=== PATIENT | male | born 1965 | race Caucasian/White ===

== ENCOUNTER 2023-12-10 05:56 | Inpatient (IN) | payer OTHER, SELFPAY ==
[2023-12-10] VITALS (10 sets, daily range): BP systolic 121–138; BP diastolic 80–106; BMI 30.5; BMI 29.8
[2023-12-10 02:27] LABS: % Basophils 0.5 % (0-2); % Eosinophils 0.3 % (0-6); % Immature Granulocytes 0.4 % (0-0.5); % Lymphocytes 43.4 % (20.5-51.1); % Monocytes 5.5 % (1.7-9.3); % Neutrophils 49.9 % (42.2-75.2); Absolute Basophils 0.1 10^3/uL (0-0.2); Absolute Immature Granulocytes 0.1 10^3/uL (0-0.05); Absolute Lymphocytes 5.5 10^3/uL (1.2-3.4); Absolute Monocytes 0.7 10^3/uL (0.1-0.6); Absolute Neutrophils 6.4 10^3/uL (1.4-6.5); Mean Corp Hgb Conc. 34.2 g/dL (33.0-37.0); Mean Corpuscular Hgb 31.8 pg (27.0-31.0); Mean Platelet Volume 9.5 fL (7.4-10.4); Nucleated Red Blood Cells % 0 % (-); Platelet Count 256 10^3/uL (130-400); Red Blood Cell Count 3.87 10^6/uL (4.70-6.10); White Blood Cell Count 12.7 10^3/uL (4.8-10.8)
[2023-12-10 02:32] LABS: Hemoglobin 12.3 g/dL (13.0-18.0)
[2023-12-10 02:44] LABS: ALT (SGPT) 67 U/L (0-50); AST (SGOT) 102 U/L (17-59); Albumin 4.2 g/dl (3.5-5.0); Blood Urea Nitrogen 27 mg/dl (9-20); Carbon Dioxide 27 mmol/L (22-30); Glucose 125 mg/dl (70-99); Potassium 3.6 mmol/L (3.5-5.1); Total Bilirubin 1.5 mg/dl (0.2-1.3); Total Protein 6.8 g/dl (6.3-8.2); eGFR > 60.00
[2023-12-10 02:53] LABS: Alkaline Phosphatase 97 U/L (38-126); Calcium 10.1 mg/dl (8.4-10.2); Chloride 102 mmol/L (98-107); Sodium 139 mmol/L (135-145)
[2023-12-10 03:05] LABS: NT-proBNP 5520 pg/ml; Troponin I 0.068 ng/ml
--- NOTE | 2023-12-10 03:08 | ED.GENMED ---
History of Present Illness
General
Chief Complaint: Breathing Problem
Source: patient
Exam Limitations: none
Time Seen by Provider: 12/10/23 03:04
Travel History
Have you had any contact with someone who has COVID-19?: No
Do you have any symptoms of coronavirus? Fever > 100 degrees, chills, cough, shortness of breath, sore throat, loss of taste or smell, muscle aches, or headache?: No
History of Present Illness
History of Present Illness:
This is a 58 year old male that comes in with c/o SOB and his feet and ankles swelling. States that this started a couple days ago and has gotten worse. States that he has upper chest pain with the SOB, abd pain, nausea, vomiting, slight headache
and dizziness. Denies any fever, chills, diarrhea, urinary burning.
Past History
Past History
ED Past Medical History: COPD, Psychiatric (Bipolar, ) and Other (ADHD)
ED Past Surgical History: None
Social History
Tobacco: Smoker
Alcohol: Daily (1)
Personal:
Living: with family
Employment: Employed
Review of Systems
Review of Systems
All Other Systems: ROS reviewed and negative except as documented in HPI and ROS
Constitutional: Reports no symptoms; Denies fever or chills
EENT: Reports no symptoms
Respiratory: Reports trouble breathing; Denies cough
Cardiac: Reports chest pain
ABD/GI: Reports abdominal pain, nausea and vomiting; Denies diarrhea
: Reports no symptoms; Denies dysuria, frequency or urgency
Musculoskeletal: Reports edema (Feet and lower legs)
Skin: Reports no symptoms
Neurological: Reports dizzy (Slight) and headache
Psychiatric: Reports no symptoms
Phy Exam
General Physical Exam
General Presentation: no apparent distress
General age: appears stated age
General Skin: warm and dry
General Habitus: normal
General Mental: alert
General Hydration: dry mucous membranes
ENT Exam
ENT Exam: TM's normal, pharynx normal and neck supple
Eye Exam
Eye Exam: EOMI
Cardiovascular Exam
Cardiovascular Exam: regular rate/rhythm, no murmur and normal peripheral pulses
Pulmonary Exam
Pulmonary Exam: lungs clear, no respiratory distress, no rales, chest non tender, no crackles, no rhonchi, no wheezing and no cough
Gastrointestinal Exam
Gastrointestinal Exam: normal bowel sounds, non tender, soft, no organomegaly, no pulsatile mass and non distended
Musculoskeletal Exam
Musculoskeletal Exam: full ROM and edema (of the feet and legs. +2 pitting in the lower legs and decreased into the thighs)
Skin Exam
Skin Exam: normal color, warm/dry, no petechia and other (Light red discoloration of the mid abd around the naval. Cooler in temperature of surrounding skin. Slight mottling of the knee's)
Psychiatric Exam
Psychiatric Exam: normal mood/affect
Scores
Heart Failure Risk
Heart Failure Risk Score: Not Applicable
Course
Orders/Labs/Results
Orders:
Orders
12/10/23 02:12
Electrocardiogram (*1) Urgent
Reason for Study: Shortness of Breath
12/10/23 02:22
Complete Blood Count/With Diff Urgent
Comprehensive Metabolic Panel Urgent
NT-proBNP Urgent
Troponin I Urgent
12/10/23 02:25
Chest [CR Chest - 2 Views ] Urgent
Comment:
Reason For Exam: sob
12/10/23 03:33
CT Chest/abd/pelvis Angio W/wo Urgent
Comment:
Reason For Exam: Chest/abd pain. discoloration of abd.
12/10/23 03:46
EKG- Treatment ONCE
12/10/23 04:43
Admit/Transfer Patient As Directed
Co-Sign Provider:
Level of Care: Inpatient admission
Assign to:: Telemetry
Physician / Group: [email or web address]
Diagnosis: COPD flare vs acute HF, acute ETOH hepatitis, possible CLL, elvated TPNI (
Reason for Telemetry: Chest Pain syndromes
Date to Stop Telemetry: 12/12/23
Time to Stop Telemetry: 11:00
Reason for Hospitalization: COPD flare vs acute HF, acute ETOH hepatitis, possible CLL, elvated TPNI ( NIMI)
Expected length of stay greater than two midnights?: Yes
ELOS- Estimated Length of Stay in days: 3
I certify the patient meets the requirements for IP care: Yes
12/10/23 04:45
Code Status As Directed
Resuscitation Status: Full Code
12/10/23 04:49
Furosemide [Lasix] 20 mg IV NOW STA
12/10/23 05:05
Furosemide [Lasix] 20 mg IV NOW STA
12/10/23 05:20
Electrocardiogram (*1) Urgent
Reason for Study: Chest Pain
Other Reason for Exam: Repeat with Troponin
12/10/23 05:26
Consult Notification Routine
Specialty to Notify: Gastroenterology
Date consulting provider notified: 12/10/23
Time consulting provider notified: 07:34
Notified:: Provider
12/10/23 Breakfast
Cholesterol Lowering
At Your Request: Full Participation
Cholesterol Lowering: Sodium, 2 Gram
12/10/23 06:01
0.9% Sodium Chloride [Nss (Preservative Free)] See Protocol IV PRN PRN
FOLic ACID [Folvite] 1 mg 0.9% Sodium Chloride 50 ml [Nss] 50 ml IV DAILYPRN
Ipratropium/Albuterol Sulfate [Duoneb] 3 ml INH R Q4HPRN PRN
Lorazepam [Ativan] 1 mg IV Q1HPRN PRN
Lorazepam [Ativan] 1 mg PO Q2HPRN PRN
Lorazepam [Ativan] 2 mg IV Q1HPRN PRN
12/10/23 06:01
CARDIOLOGY CONSULT Routine
Consulting Provider: Kenny Gutierrez
Was physician already notified: No
Reason for consult: COPD flare vs acute HF, acute ETOH hepatitis, possible CLL, elvated TPNI (
Case Management Consult Once
Case Management Consult: Other
Comment: Substance abuse counseling
Consult Notification Routine
Specialty to Notify: Cardiology
Date consulting provider notified: 12/10/23
Time consulting provider notified: 07:38
Notified:: Provider
Consult Notification Routine
Specialty to Notify: Oncology
Date consulting provider notified: 12/10/23
Time consulting provider notified: 07:42
Notified:: Provider
DIETARY CONSULT Routine
Reason for Consult: Nutrition support, possible refeeding guidelines
HF DIETARY CONSULT Routine
HF EDUCATOR CONSULT Routine
Comment:
ONCOLOGY CONSULT Routine
Consulting Provider: Jose Roberto Chavez
Was physician already notified: No
Reason for consult: atypical lymphocytes ? CLL
Activity As Directed
Activity Level: With Assistance
Intake/ Output As Directed
Frequency: Per unit guidelines
MSAS SCORE As Directed
MSAS Score 0-4: Repeat MSAS every 2 hours until 0-4 for three consecutive assessments, then every 4 hours x 48
hours.
MSAS Score 5-7: For MILD withdrawl symptoms. Repeat MSAS and RASS every 2 hours
MSAS Score 8-11: For MODERATE withdrawal symptoms. Repeat MSAS and RASS every 1 hour. Consider ICU or IMU
level of care.
MSAS Score > 11: For SEVERE withdrawal symptoms. Repeat MSAS and RASS every 1 hour. Notify provider, consider
ICU level of care.
MSAS Additional Instructions: If no improvement or no decrease in score from severe to moderate within 12
hours, consult psychiatry
MSAS Notify Provider: Notify provider if patient requires more than 10 mg of Lorazepam in eight hour period.
Patient Education As Directed
Type: CHF folder
Comment: give on admission. Document in Interdisciplinary Education record
Pneumatic Compression Sleeves As Directed
Type: Knee high
Sleep Apnea Assessment by RN As Directed
Comment:
Physician Instructions:
Vital Signs As Directed
Frequency: Other
Additional Instructions:: Q12 or per unit guidelines if more frequent.
Weight As Directed
Frequency: Daily
Type of Scale: Standing Scale
Comment: Daily morning weight. If unable to stand, use balanced bed scale.
Weight As Directed
Frequency: Once
Type of Scale: Standing Scale
Comment: Upon Admission. If unable to stand, use balanced bed scale.
Pulse Ox/cont/shift [RESP] Routine
Quantity: 1
Special Instructions: Daily pulse oximetry at rest. If greater than 92% at rest also obtain pulse oximetry
while ambulating as tolerated.
DX Deep Vein Thrombosis Video Routine
12/10/23 06:21
GGTP Urgent
Troponin I Q6H
Comment: at admission & every 6 hours x 2 (3 total), ECG to be done with each level
12/10/23 08:00
FOLic ACID [Folvite] 1 mg PO DAILY
Ipratropium/Albuterol Sulfate [Duoneb] 3 ml INH R QID
Thiamine Injection 200 mg IV Q12
12/10/23 09:39
Urine Drug Abuse Screen Routine
Date Specimen was Collected: 12/10/23
Time Specimen was Collected: 09:29
12/10/23 13:02
Troponin I Q6H
Comment: at admission & every 6 hours x 2 (3 total), ECG to be done with each level
12/11/23 08:00
Furosemide [Lasix] 40 mg IV DAILY
12/12/23 11:00
DC Protocol for Telemetry ONCE
12/13/23 08:00
Thiamine HCl [Vitamin B1] 100 mg PO BID
Abnormal Lab Results
12/10/23
02:22
WBC 12.7 H 10^3/uL
(4.8-10.8)
RBC 3.87 L 10^6/uL
(4.70-6.10)
Hgb 12.3 L g/dL
(13.0-18.0)
Hct 36.0 L %
(39.0-52.0)
MCH 31.8 H pg
(27.0-31.0)
RDW 15.0 H %
(11.5-14.5)
Abs Immat Gran (auto) 0.1 H 10^3/uL
(0-0.05)
Absolute Lymphs (auto) 5.5 H 10^3/uL
(1.2-3.4)
Absolute Monos (auto) 0.7 H 10^3/uL
(0.1-0.6)
BUN 27 H mg/dl
(9-20)
Glucose 125 H mg/dl
(70-99)
Total Bilirubin 1.5 H mg/dl
(0.2-1.3)
AST 102 H U/L
(17-59)
ALT 67 H U/L
(0-50)
Troponin I 0.068 H* ng/ml
12/10/23 02:22
12/10/23 02:22
Leukocytosis, H/H slighlty low. Dehydration. Glucose nonfasting. Total jl slightly elevated. AST/ALT elevation. Troponin elevated, Pro-BNP elevation.
Vital Signs
Initial and Last Documented VS:
Initial Vital Signs
Temp Pulse Resp BP Pulse Ox
98.5 F 87 24 137/100 94
12/10/23 02:09 12/10/23 02:09 12/10/23 02:09 12/10/23 02:09 12/10/23 02:09
Last Documented Vital Signs
Temp Pulse Resp BP Pulse Ox
98.4 F 113 20 123/80 97
12/10/23 15:28 12/10/23 15:28 12/10/23 15:28 12/10/23 15:28 12/10/23 15:28
MDM/Problems Addressed
Differential Diagnosis Includes:
CAD, CHF,
MDM/Problems Addressed:
This is a 58 year old male that comes in with multiple complaints States that he has had SOB and some upper chest discomfort in the past few days. States that his feet and legs are swollen and he has abd pain with nausea and vomiting.
Will get labs, X-ray.
After exam and discussion with Dr. Gaytan will get CTA of chest, abd and pelvis. Will admit patient.
Chronic conditions affecting care: COPD
Acute Exacerbation and/or Progression of Chronic Illness:
NA
*Pulse Oximetry
Patient hypoxic: no
*EKG
Interpreted by ED Provider?: Yes
Heart Rate: 111
Rate: tachycardiac
Rhythm: sinus
[place]: left axis deviation
Interval: normal interval
QRS Pattern: normal QRS
Ischemia: no ischemia (Checked by Dr. Romano)
*Dianetic Counselor Interpretation
Rate: tachycardiac
Heart Rate: 111
Rhythm: sinus tachycardia
*Critical Care Note
Total Time (30-74mins, 75-104mins- exclusive of procedures): Not Applicable
ED Attending Note
-
Portions of this chart may have been created with voice recognition software.� Occasional wrong word or��sound alike� substitutions may have occurred due to the inherent limitations of voice recognition software.
Discharge Plan
Departure
Patient Disposition: Admit
Date of Disposition: 12/10/23
Time of Disposition: 03:46
Admit to: Telemetry
Presentation/result/management discussed w/ accepting MD/DO: Hospitalist
Patient with high blood pressure during this ER visit?: Yes
Condition: Good
Covid-19: Not Applicable
Discharge Problem:
Elevated troponin, SOB (shortness of breath), Bilateral edema of lower extremity
Interventions
Interventions:
*Risk Screen - Suicide Last Done: 12/10/23 03:36
*General Assessment Last Done: 12/10/23 02:09
*Neglect/Abuse Screening Last Done: 12/10/23 03:15
ED- Fall Risk Assessment Last Done: 12/10/23 03:15
*ED COVID-19 Vaccine History Last Done: 12/10/23 09:54
*Nursing Disposition Last Done: 12/10/23 17:12
ED- Cardiac Assessment Last Done: 12/10/23 03:15
ED- Pulmonary Assessment Last Done: 12/10/23 03:15
Discharge Date and Time
Discharge Date/Time: 12/10/23 17:13
--- NOTE | 2023-12-10 04:35 | HPS.HSE ---
Addendum entered and electronically signed by Lex Lerner MD 12/10/23 05:30:
CTA APC night hawk report
- No PE
- Mild cardiomegaly
- lungs clear
- GB insulation
- subtle nodular liver suggest cirrhosis
- small volume ascites
- Diffuse anasarca
- GI consult
Addendum entered and electronically signed by Lex Lerner MD 12/10/23 05:25:
CTA APC night hawk report
- No PE
- Mild cardiomegaly
- lungs clear
- GB insulation
- subtle nodular liver suggest cirrhosis
- small volume ascites
- Diffuse anasarca
- GI consult
-
Original Note:
Family Physician
-
Family Physician:
Chief Complaint
-
SoB
History of Present Illness
58M HX COPD seen at ER for evaluation of SoB
SOB
- progressive over last couple of days
- Noted b/l Rose swelling
- Cough Sputum
- Wheze
- denied fever
- no sick contact exposure
- No recent travelling
- Noted elevated pBNP 5000s but deneid prior HX CHF
- current smoker
Acute upper CP
- elevated TPNI
Noted elevated LFTS
- daily ETOH supect use disordr
Medical History
Past Medical History
Past Medical History: Reports COPD and Psychiatric (Bipolar , ADHD , ETOH use disorder )
Past Surgical History: Reports None
Social History
Tobacco: Smoker
Alcohol: Daily
Personal:
Living: With Family
Family History
Family History: Not pertinent
Allergies / Home Medications
Allergies reflects when Allergies were last updated in [facility].
Home Medications with original date entered in [facility]
Allergy/Medication List:
Allergies
Allergy/AdvReac Type Severity Reaction Status Date / Time
No Known Allergies Allergy Unverified 03/30/23 15:22
Home Medications
multivitamin 1 tab PO DAILY 12/10/23
Review of Systems
-
Constitutional: Reports No Symptoms
EENT: Reports No Symptoms
Respiratory: Reports Trouble Breathing
Cardiac: Reports Chest Pain
Abdomen/GI: Reports No Symptoms
: Reports No Symptoms
Musculoskeletal: Reports Edema (both legs )
Skin: Reports No Symptoms
Neurological: Reports No Symptoms
Endocrine: Reports No Symptoms
Hematologic/Lymphatic: Reports No Symptoms
Psych: Reports No Symptoms
Physical Exam
Vital Signs
Vital Signs
Temp Pulse Resp BP Pulse Ox
98.5 F 112 32 135/106 98
12/10/23 02:09 12/10/23 03:30 12/10/23 03:15 12/10/23 03:24 12/10/23 03:30
Physical Exam
General: No Apparent Distress, Comfortable and Conversant
HEENT: NormoCephalic, Anicteric and Moist mucous membranes
Respiratory: Other (tachypnic )
Cardiac: S1/S2, Regular Rhythm, Tachycardia and JVD (signifcantly eleavted JVD )
Breast: Deferred by me
GI: Soft, Non Tender and Other ( discoloration of the mid abd around the naval. )
Rectal: Deferred by Provider
Genito-urinary: Deferred by me
Musculoskeletal: Edema, Left Lower Extremity, Edema, Right Lower Extremity and Other ( mottling of the knees)
Skin: Other
Neuro: AO x 3
Psych: Calm
Laboratory Results
-
12/10/23 02:22
12/10/23 02:22
Laboratory Results
Total Bilirubin 1.5 mg/dl (0.2-1.3) H 12/10/23 02:22
AST 102 U/L (17-59) H 12/10/23 02:22
ALT 67 U/L (0-50) H 12/10/23 02:22
Alkaline Phosphatase 97 U/L (38-126) 12/10/23 02:22
Troponin I 0.068 ng/ml H* 12/10/23 02:22
Data Reviewed
-
Diagnostic Radiology: Other (pending report )
CT Scan: Other (pending report )
Medical Tests (Nuc Med, Echo, EKG etc): Report Reviewed by me
Lab Data: Labs Reviewed by me
Impression/Plan
-
Data
WCC 12.7
Atypical cells questionable for CLL supposedly in March 2023 there was also a suspicion at that time per lab
BUN 27
Cr 1.1
eGFR > 60
TB 1.5
AST 102
ALT 67
TPNI 0.068
proBNP 5520
EKG: ST, LAD
Final CXR report pending
Pending CTA of chest, abd and pelvis.
ASSESSMENT & PLAN
Pending Rx reconciliation
Suspect acute HF - RHF due to chronic pulmonary HTN vs. cute on chr mixed CHF
Diff etiology: NICM due to ETOH vs. ICM
Associated worsening dyspnea/ tachypnea plus bilateral significant Rose edema plus elevated pro BNP
Elevated TPNI suspect NIMI
Current smoker
- f/u CTA APC
- IV Lasix 40 mg now and daily
- DuoNeb PRN
- dily Wt and IOs
- ECHO
- trend TPN
- CBC card consult
Elevated LFTs Diff etiology : Passive liver congestion due to acute CHF vs acute ETOH hepatitis
- Trend LFTs
Suspect ETOH use disorder
- MSAS protocol
Atypical lymphocytes : questionable for CLL supposedly in March 2023 and also a suspicion at that time per lab
Leucocytosis
Discoloration of the mid abd around the naval DDX: Ecchymosis ( Traumatic vs spontaneous)
- Heme consult
DVT Px: SCD
Code:Full
IP TLM
[2023-12-10] MEDS: LASIX 20 MG IV ×2 (05:04→05:10)
[2023-12-10 06:59] LABS: GGTP 103 U/L (15-73)
[2023-12-10 07:09] LABS: Troponin I 0.072 ng/ml
[2023-12-10] MEDS: DUONEB INH ×3 (07:27→11:15)
[2023-12-10] MEDS: FOLVITE 1 MG PO (08:14)
[2023-12-10] MEDS: THIAMINE INJECTION 200 MG IV (08:15)
--- NOTE | 2023-12-10 09:31 | W.PN.HOSP.TC ---
Today's Communication/Plan
-
Echo
Ultrasound of the abdomen
Cardiology evaluation
IV diuresis.
Assessment / Plan
Assessment / Plan
Impression:
Presentation with progressive shortness of breath, increase of abdominal girth or lower extremity edema.
Suspect CHF unknown EF.
Non-OR troponin elevation
Abnormal LFTs.
Cirrhotic liver by CT scan imaging.
Tobacco smoker for 44 years 1 to 2 pack a day.
Daily alcohol consumption.
Plan:
Presentation with exertional dyspnea, increase of abdominal girth and lower extremity edema
Admits to occasional chest pressure
Denies fever, productive cough
Tachycardic, although not hypoxic while in ED.
Noted elevated natruretic peptide and troponin in non-OR range
CT scan of the chest negative for pulmonary embolism or parenchymal abnormalities
Has significant improvement with IV Lasix initiated in ED.
Check echocardiogram
Cardiology consultation
Continue IV diuresis with Lasix 40 mg daily monitoring daily weights, output and renal function.
Clinical presentation does not appear to be a COPD exacerbation, although with long history of tobacco use disorder, will need pulmonology evaluation as outpatient including PFTs.
Consider ABG
Consider nocturnal O2 evaluation.
Abnormal LFTs mixed pattern.
Patient reports no prior history of liver disease.
Exam with increase of abdominal girth.
Patient admits to daily alcohol use.
No prior history of viral hepatitis/IV drug use.
Noted abnormal liver texture on CT scan of the chest.
Differential diagnosis: Intrinsic cirrhosis?, Versus congestive with right heart failure
Check hepatitis serologies
Ultrasound of the abdomen.
If ascites, consider diagnostic and therapeutic paracentesis.
Consider GI consultation.
Echocardiogram is pending to look at the RV function/possible pulmonary hypertension
Daily alcohol use
Patient denies alcohol use disorder
Last drink over 3 days prior to presentation
Continue MSAS for now
Thiamine/folate
Tobacco use disorder 44 years 1 to 2 packs a day
Counseled about quitting smoking
DVT prophylaxis Lovenox
Full code next
Anticipated Discharge: 24 - 48 hours
Subjective/Interval History
-
Date of Service: December 10, 2023
Objective Data
-
Labs:
Laboratory Results
12/10/23
02:22
WBC 12.7 H
Hgb 12.3 L
Hct 36.0 L
Plt Count 256
Sodium 139
Potassium 3.6
Chloride 102
Carbon Dioxide 27
BUN 27 H
Creatinine 1.1
Glucose 125 H
Calcium 10.1
Total Bilirubin 1.5 H
AST 102 H
ALT 67 H
Alkaline Phosphatase 97
Vital Signs:
Vital Signs
Temp Pulse Resp BP Pulse Ox
98.6 F 108 20 131/92 98
12/10/23 08:21 12/10/23 08:21 12/10/23 08:21 12/10/23 08:21 12/10/23 08:21
Physical Exam
-
General: Well Developed and No Apparent Distress
HEENT: Normocephalic, Atraumatic and Moist Mucous Membranes
Respiratory: Clear to Auscultation
Cardiac: Regular Rhythm and S1/S2; Negative Murmur, Rub or Gallop
GI: Soft, Nontender, Normal Bowel Sounds and Distended; Negative Organomegaly
Rectal: Deferred by Provider
Musculoskeletal: No Clubbing, No Cyanosis, No Edema and Other (Bilateral 3+ lower extremity edema)
Skin: Negative Rash
Neuro: Awake, Alert, Oriented, AO x 3 and Nonfocal/Grossly Intact; Negative Tremors
[2023-12-10 10:38] LABS: Amphetamines Positive (Negative); Barbiturates Negative (Negative); Benzodiazepines Negative (Negative); Buprenorphine Positive (Negative); Cocaine Negative (Negative); Marijuana Negative (Negative); Methadone Negative (Negative); Methamphetamines Positive (Negative); Opiates Negative (Negative); Phencyclidine Negative (Negative); Tricyclic Antidepressants Negative (Negative)
--- NOTE | 2023-12-10 10:46 | CON.CAR ---
Addendum entered and electronically signed by Emanuel Cantu MD 12/10/23 15:15:
I saw and examined the patient.
The [employer]'s note was reviewed and I agree with the note.
Comment: 58 y/o male with COPD,active smoker(not intertested in quitting) Bipolar II disorder, ADHD, 'borderline' hypertension, current smoker, Tourette syndrome, etoh abuse and denies drug use but had a positive tox screen who doesn't routinely
seek medical presents for evaluation of POND, orthopnea, weight gain and edema. He has been feeling worse than usual for 10 days. He is a recreational drug user of amphetamines and not a big drinker--only 2 daily. He is never going to quit
smoking. ON exam, he has bibasilar rales, rrr, 1/6 hsm at apex up to the axilla, 1+ pitting edema b/l . Echocardiogram revealed a severely dilated LV with an EF of 15%, stage III diastolic dysfunction, RV enlargement and reduced right systolic
function, severe mitral regurgitation, moderate to severe tricuspid regurgitation with moderate pulmonary hypertension. Assessment, new dilated cardiomyopathy, recommended cardiac catheterization and evaluation for any etiology, other etiologies
include drug-induced, alcohol induced, viral (denies any recent viral illnesses), or idiopathic. He is not interested in any workup. I discussed that there is a group of medical occasions that we recommend with a severely depressed ejection
fraction to help it hopefully regain strength or at least day wear time. He is not really interested in medications. He is asking what dietary changes he can make. We discussed low sodium and restricting his fluid to 50 ounces a day. I expressed
that alcohol cessation, smoking cessation and leading a clean lifestyle without any drug use is necessary. He does not seem committed to make these changes, certainly not going to quit smoking. He stated he would like to go now. I encouraged him
to stay for at least diuresis. He will consider it.
Original Note:
Consultation
Consultation Request
Date/Time Consultation Requested: 12/10/23600
Date/Time Consultation Performed: 12/10/23 0274
Requesting Provider: Dr. Lerner
Performing Provider: Nanci HATFIELD for Dr. Cantu
Reason for Consultation: CHF
Medical History
-
Chief Complaint: POND, LE edema, abdominal bloating
History of Present Illness:
58 y/o male with COPD, Bipolar II disorder, ADHD, 'borderline' hypertension, current smoker, and Tourette syndrome who is here for evaluation of about 1.5 weeks of LE edema and abdominal bloating with 20 lb weight gain. He also has had worsened POND.
His SOB is worse with bending down to tie shoes and he also feels some chest discomfort when that happens. Also admits to PND this past 1.5 weeks. He avoids medical care and has not seen a medical provider in a while. He came here because his
wanted him to. He is in no distress at the time of my assessment. Swelling has improved s/p IV lasix. Sinus tachycardia on monitor. No PE on CTA.
Past Medical History
Past Medical History: COPD, HTN, Psychiatric (bipolar II disorder) and Other (ADHD, as above)
Social History
Tobacco: Smoker (4-5 cigarettes per down, less than previous)
Alcohol: Other (5 days a week- two smirnoff ice)
Personal:
Living: With Family
Family History
Family History: Reviewed & Not Pertinent
Allergies / Home Medications
Allergy/AdvReac Type Severity Reaction Status Date / Time
No Known Allergies Allergy Unverified 03/30/23 15:22
�Medication �Instructions �Recorded �Confirmed �Type
naproxen sodium 220 mg tablet 220 mg PO BIDPRN PRN mild pain 12/10/23 12/10/23 History
(Aleve)
therapeutic multivitamin 1 tab PO DAILY Supplement 12/10/23 12/10/23 History
Review of Systems
-
History Source: Patient
All other systems: Negative unless noted
Constitutional: Weight Gain
Respiratory: Trouble Breathing
: Other (bloating)
Musculoskeletal: Edema
Physical Exam
Vital Signs
Temp Pulse Resp BP Pulse Ox
98.6 F 108 20 131/92 98
12/10/23 08:21 12/10/23 08:21 12/10/23 08:21 12/10/23 08:21 12/10/23 09:49
Lab Results
12/10/23 02:22
12/10/23 02:22
Troponin I 0.072 ng/ml H* 12/10/23 06:21
Kly-R-Blanwbyeugq Pept 5520 pg/ml 12/10/23 02:22
Physical Exam
General: Well Developed, Well Nourished and No Apparent Distress
HEENT: Normocephalic and Anicteric
Respiratory: Other (diminished b/l bases)
Cardiac: Regular Rhythm (ST)
GI: Distended
Musculoskeletal: Edema (+1-2 BLE edema)
Skin: Warm and Dry
Neuro: AO x 3
Psych: Calm
Impression / Plan
-
POND, weight gain, edema:
-BNP elevated 5520
-suspect acute HF, type unknown
-check echo
-agree with IV lasix, which requires intensive monitoring. Change to BID. Replace potassium and monitor.
COPD:
-not wheezing to assessment
-per primary
Smoker: current
-has cut back. I recommended total cessation. He tells me, 'That's not going to happen'.
Abnormal LFT's:
-possible cirrhosis on CT imaging, getting u/s
-has 2 drinks 5 times per week
-management per primary
Abnormal CBC:
-heme consulted
Elevated BP:
-patient tells me he has had 'borderline' HTN, but not on meds
-monitor with diuresis
Abnormal troponin:
-suspect acute non-ischemic myocardial injury in setting of acute CHF
-trend to peak, check echo
Data Reviewed
-
EKG: Tracing Personally Visualized and interpreted (ST LAD 108 BPM)
Radiology: Report Reviewed by me (No acute cardiopulmonary process.)
CT Scan: Report Reviewed by me (CTA: No aortic dissection, aortic aneurysm, or central pulmonary embolism. Mild bibasilar subsegmental atelectasis, otherwise clear lungs. Small RUL lung nodule. Pericholecystic fluid, without significant gallbladder
distention. Nodular contour of the liver, suggestive of possible cirrhosis. )
Medical Tests (Nuc Med, Echo etc): Other (ordered)
Labs: Labs Reviewed by me
--- NOTE | 2023-12-10 11:12 | CON.ONC ---
Impression
Impression
Lymphocytosis reviewed the possibility of clonal process such as CLL
Congestive heart failure
COPD
History of EtOH
Plan
Plan
No significant symptoms of higher stage disease such as adenopathy, thrombocytopenia, splenomegaly
Flow cytometry and FISH analysis as an outpatient
Recommend follow-up in the office to review associated symptoms and appropriate vaccinations
Patient History
History of Present Illness
This is a 58-year-old male with history of COPD that presented to the emergency room with shortness of breath. He was noted on routine CBC to have a predominance of lymphocytosis which has been reported previously on outpatient CBCs and not
evaluated. He states that he is feeling much better today without shortness of breath on movement or conversation. Had noted some lower extremity swelling appears to be in mild CHF receiving diuresis with improvement.
Past-Medical/Surgical History
Past Medical History
Past Medical History: COPD and Psychiatric (Bipolar , ADHD , ETOH use
Past Surgical History: None
Social History
Tobacco: Smoker
Alcohol: Daily
Personal:
Living: With Family
Family History
Family History: Not pertinent
Allergies / Home Medications
Patient Medication
�Medication �Instructions �Recorded �Confirmed �Last Taken �Type
naproxen sodium 220 mg tablet 220 mg PO BIDPRN PRN mild pain 12/10/23 12/10/23 Unknown History
(Aleve)
therapeutic multivitamin 1 tab PO DAILY Supplement 12/10/23 12/10/23 Unknown History
Active Medications
Generic Name Dose Route Start Last Admin
Trade Name Freq PRN Reason Stop Dose Admin
Albuterol/Ipratropium 3 ml 12/10/23 06:01
Ipratropium 0.5/Albuterol 3 Mg (3 Ml Ampul) INH
R Q4HPRN PRN
sob and wheeze
Protocol
Albuterol/Ipratropium 3 ml 12/10/23 08:00 12/10/23 07:35
Ipratropium 0.5/Albuterol 3 Mg (3 Ml Ampul) INH Not Given
R QID GENARO
Protocol
Folic Acid 1 mg 12/10/23 08:00 12/10/23 08:14
Folic Acid 1 Mg Tablet PO 01/07/24 07:59 1 mg
DAILY GENARO Administration
Furosemide 40 mg 12/11/23 08:00
Furosemide 40 Mg (10 Mg/Ml) 4 Ml Vial IV 01/08/24 07:59
DAILY GENARO
Folic Acid 1 mg/ Sodium 50.2 mls @ 200.8 mls/hr 12/10/23 06:01
Chloride IV 01/07/24 06:00
DAILYPRN PRN
if NPO
Lorazepam 1 mg 12/10/23 06:01
Lorazepam 1 Mg Tablet PO 01/07/24 06:00
Q2HPRN PRN
MSAS 5-7
Lorazepam 1 mg 12/10/23 06:01
Lorazepam 2 Mg/Ml Vial IV 01/07/24 06:00
Q1HPRN PRN
MSAS 8-11
Lorazepam 2 mg 12/10/23 06:01
Lorazepam 2 Mg/Ml Vial IV 01/07/24 06:00
Q1HPRN PRN
MSAS > 11
Sodium Chloride 0 ml 12/10/23 06:01
Sodium Chloride 0.9% (Preservative Free) 10 Ml Vial IV 01/07/24 06:00
PRN PRN
To dilute IV Ativan
Protocol
Sodium Chloride 0 flush 12/10/23 07:00
Sodium Chloride 0.9% (Flush) Syringe IV 01/07/24 06:59
PER PROTOCOL GENARO
Thiamine HCl 200 mg 12/10/23 08:00 12/10/23 08:15
Thiamine (100 Mg/Ml) 2 Ml Vial IV 12/12/23 20:01 200 mg
Q12 GENARO Administration
Thiamine HCl 100 mg 12/13/23 08:00
Thiamine 100 Mg Tablet PO 01/10/24 07:59
BID GENARO
Review of Systems
-
Constitutional: Reports No Symptoms
EENT: Reports No Symptoms
Respiratory: Reports Trouble Breathing
Cardiac: Reports Chest Pain
Abdomen/GI: Reports No Symptoms
: Reports No Symptoms
Musculoskeletal: Reports Edema (both legs )
Skin: Reports No Symptoms
Neurological: Reports No Symptoms
Endocrine: Reports No Symptoms
Hematologic/Lymphatic: Reports No Symptoms
Psych: Reports No Symptoms
Physical Exam
-
Physical Exam
-
General: Well Developed and No Apparent Distress
HEENT: Normocephalic, Atraumatic and Moist Mucous Membranes
Respiratory: Clear to Auscultation
Cardiac: Regular Rhythm and S1/S2; Negative Murmur, Rub or Gallop
GI: Soft, Nontender, Normal Bowel Sounds and Distended; Negative Organomegaly
Rectal: Deferred by Provider
Musculoskeletal: No Clubbing, No Cyanosis, No Edema and Other (Bilateral 3+ lower extremity edema)
Skin: Negative Rash
Neuro: Awake, Alert, Oriented, AO x 3 and Nonfocal/Grossly Intact; Negative Tremors
Labs
Lab Results
WBC 12.7 10^3/uL (4.8-10.8) H 12/10/23 02:22
RBC 3.87 10^6/uL (4.70-6.10) L 12/10/23 02:22
Hgb 12.3 g/dL (13.0-18.0) L 12/10/23 02:22
Hct 36.0 % (39.0-52.0) L 12/10/23 02:22
MCV 93.0 fL (80.0-94.0) 12/10/23 02:22
MCH 31.8 pg (27.0-31.0) H 12/10/23 02:22
MCHC 34.2 g/dL (33.0-37.0) 12/10/23 02:22
RDW 15.0 % (11.5-14.5) H 12/10/23 02:22
Plt Count 256 10^3/uL (130-400) 12/10/23 02:22
MPV 9.5 fL (7.4-10.4) 12/10/23 02:22
Abs Immat Gran (auto) 0.1 10^3/uL (0-0.05) H 12/10/23 02:22
Absolute Neuts (auto) 6.4 10^3/uL (1.4-6.5) 12/10/23 02:22
Absolute Lymphs (auto) 5.5 10^3/uL (1.2-3.4) H 12/10/23 02:22
Absolute Monos (auto) 0.7 10^3/uL (0.1-0.6) H 12/10/23 02:22
Absolute Eos (auto) 0.0 10^3/uL (0-0.7) 12/10/23 02:22
Absolute Basos (auto) 0.1 10^3/uL (0-0.2) 12/10/23 02:22
Immature Gran % 0.4 % (0-0.5) 12/10/23 02:22
Neutrophils % 49.9 % (42.2-75.2) 12/10/23 02:22
Lymphocytes % 43.4 % (20.5-51.1) 12/10/23 02:22
Monocytes % 5.5 % (1.7-9.3) 12/10/23 02:22
Eosinophils % 0.3 % (0-6) 12/10/23 02:22
Basophils % 0.5 % (0-2) 12/10/23 02:22
Creatinine 1.1 mg/dL (0.7-1.3) 12/10/23 02:22
Vital Signs
Vital Signs
Temp Pulse Resp BP Pulse Ox
98.6 F 108 20 131/92 98
12/10/23 08:21 12/10/23 08:21 12/10/23 08:21 12/10/23 08:21 12/10/23 09:49
[2023-12-10 11:27] LABS: Fentanyl, Urine Negative (Negative)
[2023-12-10] MEDS: KCL 20 MEQ PO ×2 (12:10→15:23)
[2023-12-10] MEDS: NICODERM TRANSDERMAL 21 MG TRANSDERM (13:27)
--- NOTE | 2023-12-10 13:40 | W.PN.UPDATE ---
Update Note
Progress Note Update
58 y/o male with COPD,active smoker(not intertested in quitting) Bipolar II disorder, ADHD, 'borderline' hypertension, current smoker, Tourette syndrome, etoh abuse and denies drug use but had a positive tox screen who doesn't routinely seek
medical presents for evaluation of POND, orthopnea, weight gain and edema.
[2023-12-10 13:41] LABS: Troponin I 0.068 ng/ml
[2023-12-10] MEDS: LASIX 40 MG IV (15:18)
[2023-12-10] MEDS: DUONEB 3 ML INH (15:25)
--- NOTE | 2023-12-10 17:06 | PTCARENOTE ---
Pt requesting to leave Against Medical Advice. States that he is not willing to make any lifestyle or medication changes and does not see the value in staying to receive a diagnosis when he will not follow any medical advice following. Education
provided on possible diagnosis and interventions, but patient remained resolute. Dr. Bruce in to see patient. Against Medical Advice paperwork signed. IV site removed. Pt ambulated out of hospital.
[2023-12-10 21:14] LABS: Hepatitis B Surface Antigen Negative (Negative)
[2023-12-10 21:30] LABS: Hepatitis B Core Ab, Total Negative (Negative); Hepatitis B Surface Antibody Negative; Hepatitis C Antibody Negative (Negative)
== END 2023-12-10 17:11 | disposition left against medical advice (07) | DRG 292 ==
LOC: ED 05:56
PROVIDERS: ADMITTING PHYSICIAN Internal Medicine; ATTENDING PHYSICIAN Internal Medicine; CONSULT PHYSICIAN Internal Medicine Hematology & Oncology; EMERGENCY PHYSICIAN Emergency Medicine; FAMILY PHYSICIAN Family Medicine; OTHER PHYSICIAN Internal Medicine Cardiovascular Disease
DX: I50.811 Acute right heart failure (principal); C91.10 Chronic lymphocytic leukemia of B-cell type not having achieved remission; F31.81 Bipolar II disorder; I5A Non-ischemic myocardial injury (non-traumatic); J98.11 Atelectasis; R06.02 Shortness of breath; F90.9 Attention-deficit hyperactivity disorder, unspecified type; J44.9 Chronic obstructive pulmonary disease, unspecified; E86.0 Dehydration; K70.11 Alcoholic hepatitis with ascites; F17.210 Nicotine dependence, cigarettes, uncomplicated; I27.20 Pulmonary hypertension, unspecified; K76.1 Chronic passive congestion of liver; F95.2 Tourette's disorder; F10.10 Alcohol abuse, uncomplicated; I08.1 Rheumatic disorders of both mitral and tricuspid valves; F15.90 Other stimulant use, unspecified, uncomplicated; F19.90 Other psychoactive substance use, unspecified, uncomplicated
CPT/HCPCS: 71046; 71275; 74174; 76700; 80053; 80306; 80307; 82977; 83880; 84484; 85025; 86704; 86706; 86803; 87340; 93005; 93306; 94640; 99285; Q9950; Q9967

== ENCOUNTER → 2024-05-26 13:06 | Outpatient (REF) | payer OTHER, SELFPAY | LOC: RCS 13:06 | PROVIDERS: ATTENDING PHYSICIAN Internal Medicine Cardiovascular Disease; FAMILY PHYSICIAN Family Medicine | DX: I50.22 Chronic systolic (congestive) heart failure (principal); I34.0 Nonrheumatic mitral (valve) insufficiency | CPT/HCPCS: 93306; Q9950 ==

== ENCOUNTER 2025-06-05 16:44 | Emergency (ER) | payer OTHER, SELFPAY ==
[2025-06-05 16:47] VITALS: BP 129/79
[2025-06-05 17:27] LABS: Hematocrit 38.0 % (39.0-52.0); Hemoglobin 12.8 g/dL (13.0-18.0); Mean Corp Hgb Conc. 33.7 g/dL (33.0-37.0); Mean Corpuscular Volume 93.1 fL (80.0-94.0); Platelet Count 226 10^3/uL (130-400); Red Cell Dist. Width 13.1 % (11.5-14.5)
[2025-06-05 17:28] LABS: ALT (SGPT) 19 U/L (0-50); AST (SGOT) 23 U/L (17-59); Albumin 4.2 g/dl (3.5-5.0); Alkaline Phosphatase 72 U/L (38-126); Blood Urea Nitrogen 26 mg/dl (9-20); Calcium 10.1 mg/dl (8.4-10.2); Chloride 96 mmol/L (98-107); Glucose 115 mg/dl (70-99); Potassium 4.0 mmol/L (3.5-5.1); Sodium 134 mmol/L (135-145); Total Protein 7.0 g/dl (6.3-8.2); eGFR > 60.00
[2025-06-05 17:36] LABS: Carbon Dioxide 32 mmol/L (22-30)
[2025-06-05 17:53] LABS: Nucleated Red Blood Cells % 0 % (-)
[2025-06-05] MEDS: DILAUDID 0.5 MG IV (17:58)
--- NOTE | 2025-06-05 17:58 | ED.GENMED ---
Addendum entered and electronically signed by Kirill Andino MD 06/07/25 14:54:
Patient was recommended admission. Further considerations would be temporal arteritis or infection in the neck. However no acute neurologic symptoms warranting stat MRI. All this was explained to the patient. Risks were explained risk of
paraplegia sepsis visual loss etc. Patient elected to leave the hospital instructed with return if symptoms progress. Feel reasonable at do a trial of a short course of prednisone.
Original Note:
History of Present Illness
General
Chief Complaint: Headache
Source: patient and family
Exam Limitations: none
Time Seen by Provider: 06/05/25 17:38
History of Present Illness
History of Present Illness:
Patient has had almost 2 weeks of left neck pain radiating to the left side of the head into the left orbital area. Much worse the last 3 days. No history of similar episodes. No fever. No photophobia. No visual issues. Pain is severe in nature
Past History
Past History
ED Past Medical History: CHF, COPD, Psychiatric (Bipolar, ) and Other (ADHD)
ED Past Surgical History: None
Social History
Tobacco: Smoker
Alcohol: Daily (1)
Personal:
Living: with family
Employment: Employed
Review of Systems
Review of Systems
All Other Systems: Not applicable
Constitutional: Denies fever
Respiratory: Reports no symptoms
Cardiac: Reports no symptoms
Neurological: Denies dizzy, weakness or numbness
Phy Exam
Physical Exam
Physical Exam:
GENERAL: Sitting up on the side of the bed with the lights out. Significant other holding his head. Crying in pain. However will reconnect and interact appropriately.
EYE: Orbits normal. Pupils very small bilaterally but equal. Extraocular muscles intact. No orbital tenderness. No orbital swelling. No hazy cornea.
NECK: Supple, no carotid bruit
ENT: Pharynx without erythema
CARDIAC: Regular rate and rhythm without any obvious murmurs.
LUNGS: Clear breath sounds,normal
ABDOMEN: Soft, without focal tenderness or distention
NEUROLOGICAL: Alert and oriented , grossly non-focal. Speech normal. Cranial nerves II through XII intact.
SKIN: Warm and dry, no rash or lesion, no discoloration, skin intact.
MUSCULOSKELETAL: No edema,no deformity.Good color
PSYCH: Normal and appropriate interaction.
Course
Orders/Labs/Results
Orders:
Orders
06/05/25 16:59
C-Reactive Protein Urgent
Comment: ADD ON
Complete Blood Count/With Diff Urgent
Comprehensive Metabolic Panel Urgent
Erythrocyte Sed Rate Urgent
Comment: ADD ON
06/05/25 17:46
CT Head & Neck Angio W/wo IV Urgent
Comment:
Reason For Exam: Left posterior neck pain radiating to the left orb
IV Insert/Care/Rem.- Treatment PRN
06/05/25 17:47
Acetaminophen 1000MG/100Ml [Ofirmev] 1,000 mg in 100 ml IV ONCE
Acetaminophen IV Indication:: ED Narcotic Naive Pt-ONCE
HYDROmorphone [Dilaudid] 0.5 mg IV NOW STA
06/05/25 17:55
Add On- LAB Urgent
Tests Added?: CRP, sed rate
Abnormal Lab Results
06/05/25
16:59
WBC 14.0 H 10^3/uL
(4.8-10.8)
RBC 4.08 L 10^6/uL
(4.70-6.10)
Hgb 12.8 L g/dL
(13.0-18.0)
Hct 38.0 L %
(39.0-52.0)
MCH 31.4 H pg
(27.0-31.0)
Abs Immat Gran (auto) 0.1 H 10^3/uL
(0-0.05)
Absolute Lymphs (auto) 7.3 H 10^3/uL
(1.2-3.4)
Absolute Monos (auto) 1.2 H 10^3/uL
(0.1-0.6)
Neutrophils % 38.1 L %
(42.2-75.2)
Lymphocytes % 52.0 H %
(20.5-51.1)
ESR 40 H mm/hour
(0-20)
Sodium 134 L mmol/L
(135-145)
Chloride 96 L mmol/L
(98-107)
Carbon Dioxide 32 H mmol/L
(22-30)
BUN 26 H mg/dl
(9-20)
Glucose 115 H mg/dl
(70-99)
C-Reactive Protein 75.60 H mg/L
(0.0-10.00)
06/05/25 16:59
06/05/25 16:59
Vital Signs
Initial and Last Documented VS:
Initial Vital Signs
Temp Pulse Resp BP Pulse Ox
98.4 F 87 18 129/79 99
06/05/25 16:47 06/05/25 16:47 06/05/25 16:47 06/05/25 16:47 06/05/25 16:47
Last Documented Vital Signs
Temp Pulse Resp BP Pulse Ox
98.4 F 81 18 124/81 99
06/05/25 16:47 06/05/25 18:54 06/05/25 18:54 06/05/25 18:54 06/05/25 18:54
MDM/Problems Addressed
Differential Diagnosis Includes:
Left-sided neck pain left-sided headache to the retrobulbar area. Large differential including migraine, radiculopathy, dissection, intracerebral bleed. Workup in progress. Nothing to support meningitis despite the mild leukocytosis.
*Pulse Oximetry
SaO2: 99
Oxygen Mode of Delivery: Room air
Patient hypoxic: no (99)
*Critical Care Note
Total Time (30-74mins, 75-104mins- exclusive of procedures): Not Applicable
Data Reviewed
Review of Other/Old Records Reveals: Labs, Records and Testing
ED Attending Note
-
Portions of this chart may have been created with voice recognition software.� Occasional wrong word or��sound alike� substitutions may have occurred due to the inherent limitations of voice recognition software.
Discharge Plan
Departure
Prescriptions:
No Action
Theragen Tablet
1 tab PO DAILY
naproxen sodium [Aleve] 220 mg Tablet
220 mg PO BIDPRN PRN (Reason: mild pain)
Referrals:
You Rene DO [Family Provider]
Interventions
Interventions:
*Risk Screen - Suicide Last Done: 06/05/25 16:47
*General Assessment Last Done: 06/05/25 16:47
*Neglect/Abuse Screening Last Done: 06/05/25 18:16
ED- Neurological Assessment Last Done: 06/05/25 18:16
Discharge Date and Time
Print Language: WELSH
[2025-06-05] MEDS: OFIRMEV 100 IV (17:59)
[2025-06-05 18:18] VITALS: BMI 31.9
[2025-06-05 18:54] VITALS: BP 124/81
[2025-06-05 18:56] LABS: C-Reactive Protein 75.60 mg/L (0.0-10.00)
[2025-06-05 20:58] VITALS: BP 123/90
--- NOTE | 2025-06-05 21:07 | ED.GENMED ---
History of Present Illness
General
Chief Complaint: Headache
Time Seen by Provider: 06/05/25 17:38
Past History
Past History
ED Past Medical History: CHF, COPD, Psychiatric (Bipolar, ) and Other (ADHD)
ED Past Surgical History: None
Social History
Tobacco: Smoker
Alcohol: Daily (1)
Personal:
Living: with family
Employment: Employed
Course
Orders/Labs/Results
Orders:
Orders
06/05/25 16:59
C-Reactive Protein Urgent
Comment: ADD ON
Complete Blood Count/With Diff Urgent
Comprehensive Metabolic Panel Urgent
Erythrocyte Sed Rate Urgent
Comment: ADD ON
06/05/25 17:46
CT Head & Neck Angio W/wo IV Urgent
Comment:
Reason For Exam: Left posterior neck pain radiating to the left orb
IV Insert/Care/Rem.- Treatment PRN
06/05/25 17:47
Acetaminophen 1000MG/100Ml [Ofirmev] 1,000 mg in 100 ml IV ONCE
Acetaminophen IV Indication:: ED Narcotic Naive Pt-ONCE
HYDROmorphone [Dilaudid] 0.5 mg IV NOW STA
06/05/25 17:55
Add On- LAB Urgent
Tests Added?: CRP, sed rate
Abnormal Lab Results
06/05/25
16:59
WBC 14.0 H 10^3/uL
(4.8-10.8)
RBC 4.08 L 10^6/uL
(4.70-6.10)
Hgb 12.8 L g/dL
(13.0-18.0)
Hct 38.0 L %
(39.0-52.0)
MCH 31.4 H pg
(27.0-31.0)
Abs Immat Gran (auto) 0.1 H 10^3/uL
(0-0.05)
Absolute Lymphs (auto) 7.3 H 10^3/uL
(1.2-3.4)
Absolute Monos (auto) 1.2 H 10^3/uL
(0.1-0.6)
Neutrophils % 38.1 L %
(42.2-75.2)
Lymphocytes % 52.0 H %
(20.5-51.1)
ESR 40 H mm/hour
(0-20)
Sodium 134 L mmol/L
(135-145)
Chloride 96 L mmol/L
(98-107)
Carbon Dioxide 32 H mmol/L
(22-30)
BUN 26 H mg/dl
(9-20)
Glucose 115 H mg/dl
(70-99)
C-Reactive Protein 75.60 H mg/L
(0.0-10.00)
06/05/25 16:59
06/05/25 16:59
Vital Signs
Initial and Last Documented VS:
Initial Vital Signs
Temp Pulse Resp BP Pulse Ox
98.4 F 87 18 129/79 99
06/05/25 16:47 06/05/25 16:47 06/05/25 16:47 06/05/25 16:47 06/05/25 16:47
Last Documented Vital Signs
Temp Pulse Resp BP Pulse Ox
98.4 F 85 18 123/90 96
06/05/25 16:47 06/05/25 20:58 06/05/25 20:58 06/05/25 20:58 06/05/25 20:58
*Radiology
Radiology exam reviewed: radiology read reviewed (No acute findings)
*Pulse Oximetry
SaO2: 96
Oxygen Mode of Delivery: Room air
Patient hypoxic: no
Update Note
Update Note:
Patient does appear more comfortable at this time. He is watching a cartoon on TV. Sitting up. What we know is he has got a nonspecific leukocytosis. Moderate inflammatory marker elevation. Left-sided neck pain with left-sided pain radiating
behind his left eye. I had recommended admission for further evaluation and workup for for issues such as temporal arteritis, cervical spine infection. However patient changed his mind and elected to want to leave. I went through at length these
issues and concerns. I also went through the complications of blindness sepsis paraplegia quadriplegia all related to his cervical spine infection. He currently has no acute neurologic symptoms. Again admission was highly recommended. They are
fully understanding of these risk and will leave the follow-up. I also stressed that if he changes his mind he may return immediately for further care and evaluation. I feel it is reasonable to cover with a reasonable dose of prednisone for the
possibility of temporal arteritis.
ED Attending Note
-
Portions of this chart may have been created with voice recognition software.� Occasional wrong word or��sound alike� substitutions may have occurred due to the inherent limitations of voice recognition software.
Discharge Plan
Departure
Patient Disposition: Home (Routine Discharge)
Date of Disposition: 06/05/25
Time of Disposition: 21:15
Patient with high blood pressure during this ER visit?: Yes
Discharge Problem:
Left neck pain/headache
Instructions: Headache, Adult (DC), Neck pain - ED (DC), BLOOD PRESSURE
Prescriptions:
New
prednisone 20 mg tablet
40 mg PO DAILY 7 Days Qty: 14 0RF
No Action
Theragen Tablet
1 tab PO DAILY
naproxen sodium [Aleve] 220 mg Tablet
220 mg PO BIDPRN PRN (Reason: mild pain)
Referrals:
[facility] [Provider Group] - Follow up in 2-3 days
You Rene DO [Family Provider]
Activity Restrictions/Additional Instructions:
As we discussed, I highly recommend admission to the hospital and further workup in the hospital.
Of the other etiologies for your issues that we discussed, there could be issues with blindness sepsis paraplegia quadriplegia or other serious complications.
Please return immediately if you change your mind about admission or any symptoms progress or you develop any new symptoms
Your prescription for the prednisone was sent to your pharmacy
You need to arrange for close follow-up for new primary physician. The family residency program is excellent and would be a good resource. I would call them tomorrow.
Interventions
Interventions:
*Risk Screen - Suicide Last Done: 06/05/25 16:47
*General Assessment Last Done: 06/05/25 16:47
*Neglect/Abuse Screening Last Done: 06/05/25 18:16
ED- Neurological Assessment Last Done: 06/05/25 18:16
Discharge Date and Time
Print Language: LITHUANIAN
[2025-06-05] MEDS: DELTASONE 50 MG PO (21:26)
== END 2025-06-05 21:34 | disposition home or self-care (01) ==
LOC: EMR 16:44
PROVIDERS: Emergency Medicine; EMERGENCY PHYSICIAN Emergency Medicine; FAMILY PHYSICIAN Family Medicine
DX: R51.9 Headache, unspecified (principal); M54.2 Cervicalgia; F17.200 Nicotine dependence, unspecified, uncomplicated; I50.9 Heart failure, unspecified; J44.9 Chronic obstructive pulmonary disease, unspecified
CPT/HCPCS: 99284; 96374; 96375; 70496; 70498; 80053; 85025; 85652; 86140; Q9967